=== PATIENT | female | born 1945 | race Caucasian/White ===

== ENCOUNTER → 2019-07-10 | Outpatient (CLI) | payer MEDICARE, OTHER ==
[~2019-07-10] MED LIST: IOPAMIDOL 370 MG/ML 200 ML INFUS..BTL INJ ONE; SODIUM CHLORIDE 0.9% 50ML 50 ML ONE
--- NOTE | 2019-07-10 16:36 | Diagnostic Imaging Report ---
Exam: Head CT without contrast History: Trauma, fall Comparison studies: None Technique: Axial images were obtained from the skull base to the vertex. Coronal and sagittal images reconstructed from the axial data. Dose modulation, iterative reconstruction, and/or weight based adjustment of the mA/kV was utilized to reduce the radiation dose to as low as reasonably achievable. Radiation dose: Total DLP: 921 mGy*cm. Estimated effective dose: DLP x 0.015 Intravenous contrast: None Findings: Scalp: No abnormalities. Bones: No fractures, blastic or lytic lesions. Brain sulci: Moderately prompt. Ventricles: Moderate compensatory dilatation.. No hydrocephalus. Extra-axial spaces: No masses, no fluid collection. Parenchyma: No abnormal densities. No masses, hemorrhage, acute or chronic vascular insults. Sellar/suprasellar region: No abnormalities. Craniocervical junction: Patent foramen magnum. No Chiari one malformation. Included paranasal sinuses: Clear. Middle ear and included mastoid cavities: Clear. IMPRESSION: 1. No acute abnormalities. 2. Moderate generalized cerebral volume loss. Signed by: Dr. Milton Mon M.D. on 07/10/2019 4:32 PM
--- NOTE | 2019-07-10 16:55 | Diagnostic Imaging Report ---
Radiographs of the left knee - 3 views HISTORY: Pain COMPARISON: None available. FINDINGS: Bones: No acute displaced fracture. Osseous alignment is within normal limits. Joints: Moderate tricompartmental degenerative arthrosis most pronounced in the medial compartment with joint space narrowing and peripheral osteophytosis. No osseous erosion. Soft tissues: Chondrocalcinosis. Correlate for CPPD. Suprapatellar effusion. IMPRESSION: Moderate tricompartmental degenerative arthrosis most pronounced in the medial compartment with joint space narrowing and peripheral osteophytosis. No osseous erosion. Chondrocalcinosis. Correlate for CPPD Signed by: Dr. Geovanny Ford M.D. on 07/10/2019 4:52 PM
--- NOTE | 2019-07-10 16:56 | Diagnostic Imaging Report ---
Radiographs of the left elbow - 2 views HISTORY: Pain COMPARISON: None available. FINDINGS: Bones: No acute displaced fracture. Osseous alignment is within normal limits. Joints: Scattered degenerative change. No osseous erosion. Soft tissues: The soft tissues appear unremarkable. IMPRESSION: Scattered degenerative change. No osseous erosion. Signed by: Dr. Geovanny Ford M.D. on 07/10/2019 4:52 PM
--- NOTE | 2019-07-10 17:00 | Diagnostic Imaging Report ---
Radiographs of the right and left hand - 3 views each hand HISTORY: Pain COMPARISON: None available. FINDINGS: Bones: Suspected subacute intra-articular fracture involving the right first proximal metacarpal with soft tissue swelling. Small calcification at the proximal interphalangeal joint of the right index finger could be due to a small avulsion fracture. Osseous alignment is within normal limits. Joints: Scattered degenerative change. No osseous erosion Soft tissues: Soft tissue swelling IMPRESSION: Suspected subacute intra-articular fracture involving the right first proximal metacarpal with soft tissue swelling. Small calcification at the proximal interphalangeal joint of the right index finger could be due to a small avulsion fracture. Signed by: Dr. Geovanny Ford M.D. on 07/10/2019 4:56 PM
== END ==
LOC: CT 15:15
PROVIDERS: ATTEND Emergency Medicine
DX: Z04.3 Encounter for examination and observation following other accident (principal); W19.XXXA Unspecified fall, initial encounter; Z91.89 Other specified personal risk factors, not elsewhere classified
CPT/HCPCS: 70450; 73080; 73130; 73562; Q9967

== ENCOUNTER → 2019-07-25 | Outpatient (CLI) | payer MEDICARE, OTHER ==
--- NOTE | 2019-07-25 17:30 | Diagnostic Imaging Report ---
Hand complete bilateral CPT code: 88029 x 2 Indication: Fall two days ago Technique: Three views of the hands obtained without comparison. Findings: Right hand: There are moderate degenerative changes of the first CMC. Mild degenerative changes of digits 2 and 3 of the proximal and distal IP joints. Mild degenerative changes of the proximal IP joints of digits 4 and 5. No acute fracture or dislocation. No radiopaque foreign body in the soft tissues. Left hand: There are mild degenerative changes of the first CMC. No significant degenerative changes of the digits. No acute fracture or dislocation. No radiopaque foreign body in the soft tissues. IMPRESSION: No acute traumatic findings. Degenerative changes as described above. Signed by: Dr. Blanca Roy MD on 07/25/2019 5:27 PM
--- NOTE | 2019-07-25 17:32 | Diagnostic Imaging Report ---
Wrist Complete Bilateral CPT Code: 10144 x 2 Indication: Fall 2 days ago Technique: Three views wrists obtained Comparison: Hand x-rays obtained at the same time Findings: Distal radius and ulna are intact. No dislocation. Carpal bones are intact and normally aligned. There are moderate degenerative changes of the right first CMC and mild degenerative changes of the left first CMC. The visualized digits are intact. No radiopaque foreign bodies in the soft tissues. IMPRESSION: No acute fracture or dislocation. Degenerative changes as described above. Signed by: Dr. Blanca Roy MD on 07/25/2019 5:29 PM
--- NOTE | 2019-07-25 18:41 | Diagnostic Imaging Report ---
CT BRAIN WO HISTORY: 74-year-old female status post fall 2 days ago COMPARISON: None. TECHNIQUE: Noncontrast axial scans were obtained from skull base to the vertex. Coronal and sagittal reconstructions obtained from the axial data. One or more of the following dose reduction techniques were used: Automated exposure control, adjustment of the mA and/or kV according to patient size, and/or utilization of iterative reconstruction technique. DISCUSSION: Scalp/Skull: Unremarkable. Brain sulci: Prominent. Ventricles: Mild compensated dilatation. No hydrocephalus. Extra-axial spaces: No masses or fluid collections. Parenchyma: Multiple punctate hypoattenuating foci in the supratentorial white matter consistent with chronic microvascular ischemic changes. No mass, hemorrhage, or large vascular territory acute infarct. Dural sinuses: No abnormal densities. Sellar/Suprasellar region: Intact. Skull base: Intact. IMPRESSION: No acute intracranial abnormalities. Chronic findings: Mild chronic microvascular ischemic changes. Mild generalized volume loss. This preliminary report was issued by Dr. Quinton De La Torre M.D. neuroradiology fellow at 1840 hours on 07/25/2019. I have reviewed the images and agree with findings in the preliminary report. Signed by: Dr. Sisi Powell M.D. on 07/25/2019 8:30 PM
== END ==
LOC: CT 16:32
PROVIDERS: ATTEND Emergency Medicine
DX: T14.90XA Injury, unspecified, initial encounter (principal); W18.30XA Fall on same level, unspecified, initial encounter
CPT/HCPCS: 70450

== ENCOUNTER → 2022-07-24 | Outpatient (CLI) | payer MEDICARE, OTHER | LOC: CARD 13:52 | PROVIDERS: ATTEND Emergency Medicine | DX: I65.23 Occlusion and stenosis of bilateral carotid arteries (principal) | CPT/HCPCS: 93880 ==

== ENCOUNTER → 2022-10-03 | Outpatient (CLI) | payer MEDICARE, OTHER | LOC: CARD 14:10 | PROVIDERS: ATTEND Emergency Medicine | DX: I65.22 Occlusion and stenosis of left carotid artery (principal) | CPT/HCPCS: 93880 ==